=== PATIENT | female | born 1980 | race Caucasian/White ===

== ENCOUNTER 2017-07-17 03:19 | Emergency (ER) | payer BC, SELFPAY ==
[2017-07-17 03:45] LABS: #Eosinphils 0.1 thou/uL (0.0-0.7); #Lymphocytes 1.2 thou/uL (1.20-3.40); #Monocytes 0.4 thou/uL (0.11-0.59); #Neutrophils 4.8 thou/uL (1.40-6.50); %Basophils 0.7 % (0.0-1.0); %Eosinophils 1.5 % (0.0-10.0); %Lymphocytes 18.1 % (21.0-51.0); %Monocytes 6.6 % (0.0-10.0); Hematocrit 45.6 % (36.0-47.0); Mean Platelet Volume 8.1 fL (7.4-10.4); Red Blood Cell (RBC) Count 4.88 mill/uL (4.20-5.40); White Blood Cell (WBC) Count 6.6 thou/uL (4.8-10.8)
[2017-07-17] MEDS ORDERED: Pantoprazole 40 MG VIAL ONE (03:45)
[2017-07-17] MEDS ORDERED: Mag-Al 1200 mg/1200 mg/30 ML UDCUP ONE (03:45)
[2017-07-17] MEDS ORDERED: Ondansetron HCl/PF 4 MG/2 ML Vial ONE (03:45)
[2017-07-17] MEDS ORDERED: Lidocaine Viscous Sol 2% 15 ml UD Cup ONE (03:45)
[2017-07-17 04:05] LABS: ALT (SGPT) 191 U/L (8-55); AST (SGOT) 191 U/L (5-34); Alkaline Phosphatase 152 U/L (40-150); Anion Gap 11 mmol/L (10-20); BUN (Urea Nitrogen) 14 mg/dL (7.0-18.7); Bilirubin, Total 0.9 mg/dL (0.2-1.2); Calc. Creatinine Clearance 0 mL/min (70-130); Calcium 9.2 mg/dL (7.8-10.44); Carbon Dioxide 24 mmol/L (22-29); Chloride 107 mmol/L (98-107); Estimated GFR-MDRD Greater than 90; Globulin 3.1 g/dL (2.4-3.5); Lipase 145 U/L (8-78); Protein, Total 7.3 g/dL (6.0-8.3)
[2017-07-17 04:09] LABS: Troponin I Less than 0.010 ng/mL (< 0.028)
[2017-07-17] MEDS ORDERED: Benzocaine 20% Spray 60 ML CAN ONE (04:14)
[2017-07-17 04:21] LABS: Bilirubin Negative (Negative); Blood, Urine Negative (Negative); Glucose, Urine (Dipstick) Negative (Negative); Ketone, Urine Negative (Negative); Nitrite Negative (Negative); Protein, Urine (Dipstick) Negative (Neg-Trace)
[2017-07-17] MEDS ORDERED: Dicyclomine HCl 20 mg/2 ml Ampule ONE (05:54)
[2017-07-17 06:10] LABS: Amphetamine Not Detected (NotDetected); Methadone Not Detected (NotDetected); Methamphetamine Not Detected (NotDetected)
--- NOTE | 2017-07-17 08:15 | CT ---
PRELIMINARY REPORT/[facility]/EMERGENCY AFTER HOURS PROCEDURE: EXAM: CT Abdomen and Pelvis With Intravenous Contrast CLINICAL HISTORY: 37 years old, female; Pain; Abdominal pain; Generalized; Chest pain; Type not specified; Patient HX: Pain, R/O pe TECHNIQUE: Axial computed tomography images of the abdomen and pelvis with intravenous contrast. Coronal reformatted images were created and reviewed. CONTRAST: 100 mL of ISOVUE administered intravenously. COMPARISON: No relevant prior studies available. FINDINGS: Lower thorax: No acute findings. ABDOMEN: Liver: Unremarkable. No mass. Gallbladder and bile ducts: There has been a cholecystectomy. No ductal dilation. Pancreas: Unremarkable. No mass. No ductal dilation. Spleen: Unremarkable. No splenomegaly. Adrenals: Unremarkable. No mass. Kidneys and ureters: Unremarkable. No solid mass. No hydronephrosis. Stomach and bowel: Unremarkable. No obstruction. No mucosal thickening. Appendix: No findings to suggest acute appendicitis. PELVIS: Bladder: Unremarkable. No mass. Reproductive: Unremarkable as visualized. ABDOMEN and PELVIS: Intraperitoneal space: Heterogeneous uterus with left adnexal cyst and trace pelvic free fluid, like ly physiological given patient's age. No other acute abdominal findings. No free air. Bones/joints: No acute fracture. No dislocation. Soft tissues: There is a fat-containing umbilical hernia. Vasculature: Unremarkable. No abdominal aortic aneurysm. Lymph nodes: Unremarkable. No enlarged lymph nodes. IMPRESSION: Heterogeneous uterus with left adnexal cyst and trace pelvic free fluid, likely physiological given patient's age. No other acute abdominal findings. Thank you for allowing us to participate in the care of your patient. Dictated and Authenticated by: Oliver Petty MD 07/17/2017 5:21 AM Central Time ([place] \T\ [place]) FINAL REPORT CT OF THE ABDOMEN AND PELVIS WITH IV COTNRAST: INDICATION: History of GERD, left upper quadrant abdominal pain. IMPRESSION: No acute abnormality demonstrated. Postsurgical change of cholecystectomy and appendectomy. There is likely an involuting cyst within the left adnexa. There is a heterogeneous-appearing uterus whic h may reflect underlying fibroid disease. POS: [facility]
--- NOTE | 2017-07-17 08:36 | CT ---
PRELIMINARY REPORT/[facility]/EMERGENCY AFTER HOURS PROCEDURE: EXAM: CT Angiography Chest With Intravenous Contrast CLINICAL HISTORY: 37 years old, female; Pain; Abdominal pain; Generalized; Chest pain; Type not specified; Patient HX: Pain, R/O pe TECHNIQUE: Axial computed tomographic angiography images of the chest with intravenous contrast using pulmonary embolism protocol. CONTRAST: 100 mL of ISOVUE administered intravenously. COMPARISON: No relevant prior studies available. FINDINGS: Pulmonary arteries: Unremarkable. No pulmonary embolism. Aorta: No acute findings. No thoracic aortic aneurysm. Lungs: Unremarkable. No mass. No consolidation. Pleural space: Unremarkable. No significant effusion. No pneumothorax. Heart: Unremarkable. No cardiomegaly. No significant pericardial effusion. No evidence of RV dysfunc tion. Bones/joints: No acute fracture. No dislocation. Soft tissues: Unremarkable. Lymph nodes: Unremarkable. No enlarged lymph nodes. IMPRESSION: No pulmonary embolus. Thank you for allowing us to participate in the care of your patient. Dictated and Authenticated by: Oliver Petty MD 07/17/2017 5:21 AM Central Time ([place] \T\ [place]) FINAL REPORT CTA OF THE THORAX UTILIZING IV CONTRAST AND PE PROTOCOL AND 3D REFORMATTED IMAGING: INDICATION: Chest pain with food being stuck in the inner chest with a history of GERD. IMPRESSION: Agree with the preliminary report provided. No central or segmental pulmonary embolus is evident. No acute cardiopulmonary abnormality is noted. Please see the separately dictated CT of the abdomen and pelvis for details concerning the upper abdomen. POS: [facility]
[2017-07-17] MEDS ORDERED: ISOVUE-370 76%-LOCM 1 ML ONE (16:35)
== END 2017-07-17 07:40 | disposition home or self-care (01) ==
LOC: ERS 03:19
DX: R10.12 Left upper quadrant pain (principal)
CPT/HCPCS: 71275; 74177; 80053; 80306; 80307; 81003; 81025; 82553; 83690; 84484; 85025; 85379; 93005; 96361; 96372; 96374; 96375; C9113; J2270; J2405

== ENCOUNTER 2017-07-18 16:52 | Emergency (ER) | payer BC ==
[2017-07-18 17:30] LABS: Bilirubin Negative (Negative); Blood, Urine Negative (Negative); Glucose, Urine (Dipstick) Negative (Negative); Ketone, Urine Negative (Negative); Nitrite Negative (Negative); Protein, Urine (Dipstick) Negative (Neg-Trace)
[2017-07-18 17:42] LABS: #Eosinphils 0.1 thou/uL (0.0-0.7); #Lymphocytes 0.4 thou/uL (1.20-3.40); #Monocytes 0.3 thou/uL (0.11-0.59); %Basophils 0.3 % (0.0-1.0); %Eosinophils 0.9 % (0.0-10.0); %Lymphocytes 7.4 % (21.0-51.0); %Monocytes 4.8 % (0.0-10.0); Hematocrit 40.2 % (36.0-47.0); Mean Platelet Volume 8.2 fL (7.4-10.4); Red Blood Cell (RBC) Count 4.22 mill/uL (4.20-5.40); White Blood Cell (WBC) Count 5.8 thou/uL (4.8-10.8)
[2017-07-18 18:06] LABS: ALT (SGPT) 348 U/L (8-55); AST (SGOT) 205 U/L (5-34); Alkaline Phosphatase 259 U/L (40-150); Anion Gap 10 mmol/L (10-20); BUN (Urea Nitrogen) 5 mg/dL (7.0-18.7); Bilirubin, Total 1.9 mg/dL (0.2-1.2); Calc. Creatinine Clearance 0 mL/min (70-130); Carbon Dioxide 27 mmol/L (22-29); Chloride 104 mmol/L (98-107); Estimated GFR-MDRD Greater than 90; Globulin 2.7 g/dL (2.4-3.5); Protein, Total 6.6 g/dL (6.0-8.3)
[2017-07-18] MEDS ORDERED: Ondansetron HCl/PF 4 MG/2 ML Vial ONE (19:40)
--- NOTE | 2017-07-18 21:11 | ULT ---
RIGHT UPPER QUADRANT ULTRASOUND: 07/18/17 HISTORY: 37-year-old female with abdominal pain and right upper quadrant pain. Patient is status post cholecystectomy. Common bile duct measures approximately 1.7 cm in diameter. Pancreatic duct is borderline at 0.3 cm in size. No focal liver mass. No significant peripheral intr ahepatic ductal dilatation. Right kidney is unremarkable. No evidence for right upper quadrant fluid collection. IMPRESSION: Status post cholecystectomy with dilatation of the common bile duct but no significant intrahepatic dilatation. Borderline sized pancreatic duct. POS: [facility]
== END 2017-07-18 23:00 | disposition home or self-care (01) ==
LOC: ERS 16:52
DX: K52.9 Noninfective gastroenteritis and colitis, unspecified (principal)
CPT/HCPCS: 36415; 76705; 80053; 80074; 81003; 81025; 83690; 85025; 96361; 96374; 96375; J1170; J2405

== ENCOUNTER 2022-03-23 04:34 | Emergency (ER) | payer BC ==
[2022-03-23] MEDS ORDERED: Mag-Al 1200 mg/1200 mg/30 ML UDCUP ONE (04:49)
[2022-03-23] MEDS ORDERED: Lidocaine Viscous Sol 2% 15 ml UD Cup ONE (04:49)
[2022-03-23] MEDS ORDERED: Ketorolac Tromethamine 30 MG/ML VIAL ONE (04:52)
[2022-03-23 05:33] LABS: #Eosinphils 0.1 thou/uL (0.0-0.7); #Lymphocytes 1.3 thou/uL (1.20-3.40); #Monocytes 0.3 thou/uL (0.11-0.59); #Neutrophils 2.6 thou/uL (1.40-6.50); %Basophils 0.8 % (0.0-1.0); %Eosinophils 1.4 % (0.0-10.0); %Lymphocytes 30.7 % (21.0-51.0); %Monocytes 6.1 % (0.0-10.0); Hemoglobin 15.1 g/dL (12.0-16.0); Mean Corpuscular HGB CONC 34.8 g/dL (32.0-36.0); Mean Corpuscular Hemoglobin 33.7 pg (27.0-31.0); Mean Corpuscular Volume 96.9 fL (78.0-98.0); Mean Platelet Volume 7.6 fL (7.4-10.4); Platelet Count 206 thou/uL (130-400); RBC Distribution Width 11.1 % (11.5-14.5); Red Blood Cell (RBC) Count 4.47 mill/uL (4.20-5.40); White Blood Cell (WBC) Count 4.3 thou/uL (4.8-10.8)
[2022-03-23 05:45] LABS: ALT (SGPT) 18 U/L (8-55); AST (SGOT) 18 U/L (5-34); Albumin 4.2 g/dL (3.5-5.0); Alkaline Phosphatase 62 U/L (40-110); Anion Gap 9 mmol/L (10-20); BUN (Urea Nitrogen) 24 mg/dL (7.0-18.7); Calc. Creatinine Clearance 0 mL/min (70-130); Calcium 9.7 mg/dL (7.8-10.44); Carbon Dioxide 30 mmol/L (22-29); Chloride 102 mmol/L (98-107); Globulin 2.8 g/dL (2.4-3.5); Glucose 88 mg/dL (70-105); Lipase 43 U/L (8-78); Potassium 4.1 mmol/L (3.5-5.1); Sodium 137 mmol/L (136-145)
[2022-03-23 06:01] LABS: Bilirubin Negative (Negative); Blood, Urine Negative (Negative); Clarity Clear (Clear); Glucose, Urine (Dipstick) Normal (Negative); Ketone, Urine Negative (Negative); Leukocyte Negative Leu/uL (Negative); Nitrite Negative (Negative); Protein, Urine (Dipstick) Negative (Neg-Trace); Specific Gravity, Urine 1.009 (1.002-1.036); Urobilinogen Normal mg/dL (Less than 2)
[2022-03-23 06:31] LABS: BHCG - Serum Negative (NEGATIVE); Pregs Control Background? CLEAR/WHITE (CLR/WHITE); Pregs Control Bar Appear? YES (CONTROL BAR)
[2022-03-23] MEDS ORDERED: Dicyclomine 20 MG/2 ML VIAL ONE (07:53)
[2022-03-23] MEDS ORDERED: Iopamidol-370 76% 500 ML 1 ML ONE (10:34)
== END 2022-03-23 08:21 | disposition home or self-care (01) ==
LOC: ERS 04:34
DX: R10.13 Epigastric pain (principal); G89.29 Other chronic pain; Z79.899 Other long term (current) drug therapy
CPT/HCPCS: 71045; 74177; 80053; 81003; 83690; 83735; 84703; 85025; 93005; 96372; 96374; 96376; J0500; J1885; Q9967